=== PATIENT | male | born 1940 | race Caucasian/White ===

== ENCOUNTER → 2018-09-22 | Outpatient (CLI) | payer OTHER, MEDICARE ==
[~2018-09-22] VITALS: Ht 182.9 cm; Wt 105.2 kg
[~2018-09-22] MED LIST: ALLEGRA180 MG PO; ASPIR 8181 MG PO; AVALIDE 150-121 EACH PO; CELEBREX 200 M200 MG PO; CENTRUM SILVER1 EAC2 PO; CIPROFLOXACIN500 M1 PO; COLACE100 MG; FISH OIL 1,0001 EAC5 PO; FLOMAX PO; HYDROCHLOROTH12.5 M1 PO; IRBESARTAN150 MG PO; METFORMIN HCL500 MG PO; MUCINEX TA600 MG/TA1 PO; NASONEX17 GM SPRAY; NEXIUM40 MG PO; OMEPRAZOLE40 MG PO; PERCOCET 5-3251 EACH PO; SIMVASTATIN40 MG PO; TADALAFIL20 M1 PO; URECHOLINE 25 M25 MG PO; VICODIN 5-5001 EACH PO; VITAMIN D-32000 UNIT PO; VITAMINC500 PO; [UNRECOGNIZED DRUG - OTHER] PO
--- NOTE | ~2018-09-22 | P ---
[facility] [place] [address] PROCEDURE REPORT Name: GERHARD FULLER Room #: REG [facility]#: [id number] Admission: 09/22/18 ������������������ Attend Phys: Keyon Boo MD Discharge: ������������������ Date of : 44 Report #: [id number] THIS REPORT FOR: //name// CC: Keyon Castro MD DATE OF SERVICE: 09/22/2018 OUTPATIENT COLONOSCOPY: BRIEF HISTORY: The patient is a 77-year-old male with history of 8 previous colon adenomas. He presents for high risk screening. PREOPERATIVE DIAGNOSIS: High risk screening due to history of colon polyps and family history of colon cancer in sister. POSTOPERATIVE DIAGNOSES: 1. Diminutive polyp, mid transverse colon. 2. Moderate sigmoid diverticulosis coli. 3. Small internal hemorrhoids. MEDICATIONS: Deep sedation with propofol per anesthesia. SPECIMEN: Mid ascending colon polyp. ESTIMATED BLOOD LOSS: 3 mL. PROCEDURE: Colonoscopy to cecum and terminal ileum with biopsy. FINDINGS: Prior to propofol sedation, procedure of colonoscopy discussed with the patient as well as potential risks and its complications. He indicates he understands and desires to proceed. DESCRIPTION OF PROCEDURE: With the patient in left lateral decubitus position, digital examination was completed, which revealed no abnormalities. Subsequently, the Olympus video colonoscope was introduced in the rectum, advanced under direct vision to the cecum. Done with minimal difficulty. The cecum was identified by the ileocecal valve and the appendiceal orifice. I was able to visualize the distal segment of the terminal ileum, which was inspected and noted to be unremarkable. At that point, the scope was slowly withdrawn and careful circumferential views obtained including retroflexion of the scope in the ascending colon. Upon slow withdrawal of the scope, the prep was good. There were some limitations, but these were cleaned up fairly easily. Upon withdrawal of the scope, and overall, a good prep was obtained. The mucosa was within normal limits, normal vascular pattern, normal light reflex. As we [facility] [address] [place] [address] PROCEDURE REPORT Name: GERHARD FULLER Room #: REG [facility].#: [id number] Admission: 09/22/18 ������������������ Attend Phys: Keyon Boo MD Discharge: ������������������ Date of : 44 Report #: [id number] withdrew the scope, he was found to have a diminutive polyp in the mid transverse colon. It was removed with a biopsy forceps. Scope was further withdrawn and no additional neoplastic lesions were seen. The scope was withdrawn through the sigmoid colon, there was noted to be moderate sigmoid diverticular disease without endoscopic evidence of diverticulitis. The scope was withdrawn in the rectum and no abnormalities were seen. Upon retroflexion, small hemorrhoids were seen. Scope was withdrawn. The patient tolerated the procedure well. CONDITION OF THE PATIENT UPON DISCHARGE: Following procedure, the patient drowsy, aroused, conversant and will be discharged home when fully ambulatory. INSTRUCTIONS TO THE PATIENT AND FAMILY AT THE TIME OF DISCHARGE: One diminutive polyp identified and removed today. We will follow up on path. However, due to his family history and personal history of multiple adenomas, we will have him return in 5 years for high risk screening. He will otherwise return to the care of Dr. Michele Castro and return to see me as needed. ��������������������������������������������� ���������������������������������������� By: ��������������������������������������������� [id number] Keyon Boo MD /nt
--- NOTE | 2018-09-23 17:06 | PATH ---
[facility] [address] [address] PATHOLOGY RPT PROCEDURE Name: GERHARD TARIQ Marleni Room #: REG [facility] M..#: [id number] ������������������ Admission: 09/22/18 ������������������ Date of : 44 Discharge: Report #: [id number] Path Case #: [id number] [facility] Accession Number: [id number] . 01 Material submitted: . colon - BX POLYP AT MID TRANSVERSE COLON. Modifiers: transverse, mid . 01 Clinical history: . Pre-OP DX: Hx of polyps Post-OP DX: Colon polyp, diverticulosis, hemorrhoids . 02 Diagnosis: Polyp, at mid transverse colon, endoscopic biopsy: - Compatible with a hyperplastic polyp. - Negative for dysplasia or malignancy. (IUV:pit 09/23/2018) QTP/09/23/2018 . 02 Electronically signed: . Gisel Sapp MD, Pathologist NPI- [id number] . 01 Gross description: . Received in formalin labeled "Gerhard Tariq, BX polyp at mid transverse colon," is a single segment of millard soft tissue measuring 0.4 cm in maximum dimension. The specimen is entirely submitted in cassette A1. (TSD; 09/22/2018) TOB/TOB . 02 Pathologist provided ICD-10: K63.5, Z86.010 . 02 CPT . 799737 Specimen Comment: A courtesy copy of this report has been sent to Specimen Comment: [phone], . Specimen Comment: Report sent to / DR BERTRAND Performed at: [address], [place] [id number] MD Cuba Clayton MD Phone: [phone] Performed at: [address] [id number] MD Gisel Sapp MD Phone: [phone]
== END | disposition home or self-care (01) ==
LOC: GI 08:20
DX: Z12.11 Encounter for screening for malignant neoplasm of colon (principal); Z86.010 Personal history of colon polyps; Z80.0 Family history of malignant neoplasm of digestive organs; K63.5 Polyp of colon; K57.30 Diverticulosis of large intestine without perforation or abscess without bleeding; K64.8 Other hemorrhoids; I10 Essential (primary) hypertension; E78.5 Hyperlipidemia, unspecified; K21.9 Gastro-esophageal reflux disease without esophagitis; E11.9 Type 2 diabetes mellitus without complications; Z87.19 Personal history of other diseases of the digestive system; Z85.820 Personal history of malignant melanoma of skin; Z87.442 Personal history of urinary calculi; Z98.41 Cataract extraction status, right eye; Z98.42 Cataract extraction status, left eye; Z98.890 Other specified postprocedural states; Z79.899 Other long term (current) drug therapy; Z88.2 Allergy status to sulfonamides
CPT/HCPCS: 62110; 62900